=== PATIENT | female | born 1965 | race Native Hawaiian/Other Pacific Islander ===

== ENCOUNTER 2017-04-27 22:15 | Observation (INO) | payer OTHER ==
[~2017-04-27] VITALS: Ht 167.6 cm; Wt 45.5 kg
[~2017-04-27 22:15] MED LIST: BIAXIN500 MG OR; BUDE1AER5 INH; CLONAZEP ODT1 MG OR; ENTERIC COATED325 MG PO; LISI5TAB10 PO; PROVENTIL IN; SPIRIVA IN
[2017-04-27 22:32] VITALS: BP 143/83; TEMP 97.9
[2017-04-27] MEDS ORDERED: ASPIRIN ADULT L81 M1 PO (22:37)
[2017-04-27] MEDS ORDERED: LISI10TA11 PO (22:39)
[2017-04-27] MEDS ORDERED: CITALOPRAM20 MG PO (22:39)
[2017-04-27 23:00] VITALS: BP 154/77
[2017-04-27 23:16] LABS: PLATELET COUNT 228 K/uL (152-353)
[2017-04-27 23:27] LABS: PARTIAL THROMBOPLASTIN TIME 25.9 SECONDS (24.5-33.6)
[2017-04-27 23:30] VITALS: BP 136/75
[2017-04-27 23:39] LABS: POTASSIUM 3.8 mmol/L (3.6-5.2); SODIUM 121 mmol/L (136-145)
[2017-04-28] VITALS (8 sets, daily range): BP systolic 118–151; BP diastolic 65–90; TEMP 97.6–98.8; Ht 167.6 cm; Wt 45.5 kg
[2017-04-28 09:06] LABS: PLATELET COUNT 235 K/uL (152-353)
[2017-04-28 09:18] LABS: POTASSIUM 3.8 mmol/L (3.6-5.2); SODIUM 129 mmol/L (136-145)
[2017-04-29] VITALS: BP 113/70; TEMP 98
[2017-04-29 04:00] VITALS: BP 120/67; TEMP 97.9
[2017-04-29 05:17] LABS: PLATELET COUNT 226 K/uL (152-353)
[2017-04-29 05:35] LABS: POTASSIUM 3.7 mmol/L (3.6-5.2); SODIUM 137 mmol/L (136-145)
[2017-04-29 08:00] VITALS: BP 134/75; TEMP 98
[2017-04-29 12:00] VITALS: BP 130/74; TEMP 97.8
[2017-04-29 16:00] VITALS: BP 128/42; TEMP 97.7
== END 2017-04-29 16:15 | disposition home or self-care (01) ==
LOC: ED 22:15 → MED/SURG 04-28 00:45
PROVIDERS: Emergency Medicine
DX: R07.89 Other chest pain (principal); E87.1 Hypo-osmolality and hyponatremia; E86.0 Dehydration; F17.210 Nicotine dependence, cigarettes, uncomplicated; F41.1 Generalized anxiety disorder; I95.1 Orthostatic hypotension
CPT/HCPCS: 36415; 80053; 80061; 80307; 80320; 81000; 82150; 82550; 82553; 83036; 83690; 83735; 83930; 84443; 84484; 85027; 85610; 85730; 86318; 93005; 96365; 96366; 96372; 99220; 99284; G0378; G0479; J1650

== ENCOUNTER 2017-11-20 07:28 | Outpatient (CLI) | payer OTHER ==
[~2017-11-20 07:28] MED LIST changes: +ASPIRIN ADULT L81 M1 PO; +CITALOPRAM20 MG PO; +LISI10TA11 PO
== END 2017-11-20 19:02 | disposition home or self-care (01) ==
LOC: RAD 07:28
DX: J20.9 Acute bronchitis, unspecified (principal)

== ENCOUNTER 2019-03-31 18:11 | Emergency (ER) | payer OTHER ==
[~2019-03-31] VITALS: Ht 170.2 cm; Wt 48.1 kg
[2019-03-31] MEDS ORDERED: CLON1TAB18 PO (18:27)
[2019-03-31 19:23] VITALS: BP 164/83; TEMP 98.5
== END 2019-03-31 19:23 | disposition home or self-care (01) ==
LOC: ED 18:11
DX: T63.441A Toxic effect of venom of bees, accidental (unintentional), initial encounter (principal)
CPT/HCPCS: 96372; 99283; J1100

== ENCOUNTER 2023-04-10 14:34 | Outpatient (CLI) | payer OTHER ==
[~2023-04-10 14:34] MED LIST changes: +CLON1TAB18 PO
== END 2023-04-10 19:23 | disposition home or self-care (01) ==
LOC: CT 14:34
PROVIDERS: ATTEND Physician Assistant
DX: S52.532A Colles' fracture of left radius, initial encounter for closed fracture (principal); Y92.89 Other specified places as the place of occurrence of the external cause